=== PATIENT | male | born 1980 | race Caucasian/White ===

== ENCOUNTER 2016-07-10 12:57 | Emergency (ER) | payer OTHER ==
[2016-07-10 13:06] VITALS: BP 162/113; PULSE 100; RESP 18; TEMP 98.6; O2SAT 97
--- NOTE | 2016-07-10 13:32 | EDPHY ---
H & P Time Seen by Provider: 07/10/16 13:32 HPI/ROS: CHIEF COMPLAINT: Sore throat HISTORY OF PRESENT ILLNESS: Patient has had symptoms since last Tuesday, 3 days. He states that the back of his throat on the left side feels swollen and sore. It is associated with feeling like there might be something in his ear, some discomfort on the left side of his tongue, no dental symptoms. REVIEW OF SYSTEMS: No fever or chills. No trouble breathing or swallowing. Normal voice. PAST MEDICAL HISTORY: Negative General Appearance: Alert and conversant, cooperative. Patient has no trismus. He has mild pharyngeal erythema without exudate. Uvula midline. No stridor and normal voice. No drooling. No gum swelling and no dental tenderness. He has 2 shallow ulcers on the left side of his tongue and 1 on the left side of his soft palate. Neck is supple with full range of motion. Slight left submandibular lymphadenopathy otherwise normal neck exam. Emergency Department course/MDM: Patient presents with likely viral pharyngitis. He has a negative strep test. He has been taking ibuprofen but only 50 or 100 mg at a time. Oral dexamethasone 10 mg discussed and consented. Also discussed increasing oral fluids and taking 600 mg oral ibuprofen at a time. ENT follow-up if not improving this week, antibiotics not currently indicated. Smoking Status: Never smoked Constitutional: Initial Vital Signs Temperature (C) 37 C 07/10/16 13:03 Heart Rate 100 07/10/16 13:03 Respiratory Rate 18 07/10/16 13:03 Blood Pressure 162/113 H 07/10/16 13:03 O2 Sat (%) 97 07/10/16 13:03 O2 Delivery Mode Room Air Allergies/Adverse Reactions: codeine Allergy (Verified 07/10/16 13:03) Home Medications: Medication Instructions Recorded NK [No Known Home Meds] 07/10/16 MDM/Departure - MDM Medications Given: Discontinued Medications Dexamethasone (Dexamethasone) 10 mg PO EDNOW ONE Stop: 07/10/16 14:02 Last Admin: 07/10/16 14:08 Dose: 10 mg Ibuprofen (Motrin) 600 mg PO EDNOW ONE Stop: 07/10/16 14:02 Last Admin: 07/10/16 14:08 Dose: 600 mg - Depart Disposition: Home, Routine, Self-Care Clinical Impression: Acute pharyngitis Condition: Good Instructions: Pharyngitis (ED), Dexamethasone (By mouth) Additional Instructions: rapid strep negative you can take up to 600mg oral ibuprofen every 6-8 hours as needed over the next 5 days Referrals: Catrachito Greenberg MD [Medical Doctor] - 2-3 days, if not improved (ENT referral if not improving)
[2016-07-10] MEDS ORDERED: DEXAMETHASONE 2 MG TAB PO ONE (14:01)
[2016-07-10] MEDS ORDERED: IBUPROFEN 600 MG TAB PO ONE (14:01)
[2016-07-10] MEDS ORDERED: DEXAMETHASONE 4 MG TAB ONE (14:06)
== END 2016-07-10 14:14 | disposition home or self-care (01) ==
DX: J02.9 Acute pharyngitis, unspecified (principal)